=== PATIENT | female | born 1990 | race Caucasian/White ===

== ENCOUNTER 2017-06-26 23:08 | Observation (INO) | payer OTHER ==
[~2017-06-26] VITALS: Ht 162.6 cm; Wt 70.9 kg
[~2017-06-26 23:08] MED LIST: IBU800 M1 PO; PERCOCET 325 MG1 TA2 PO; PRENATAL MVI; ZOFRAN 4MG T4 MG/TAB
[2017-06-26 23:29] LABS: COLLECTION METHOD CLEAN CATCH
[2017-06-26 23:35] LABS: MUCOUS Present /lpf; PH 6 (5-8); URINE APPEARANCE Clear; URINE BACTERIA Rare /hpf; URINE BILIRUBIN Negative (NEGATIVE); URINE BLOOD Negative (NEGATIVE); URINE COLOR Yellow; URINE GLUCOSE Negative (NEGATIVE); URINE KETONE Negative (NEGATIVE); URINE LEUKOCYTE ESTERASE Negative (NEGATIVE); URINE NITRATE Negative (NEGATIVE); URINE PROTEIN(semi-quant) Negative (NEGATIVE); URINE RBC 0-2 /hpf; URINE UROBILINOGEN Negative (NEGATIVE)
[2017-06-27 00:11] LABS: BASO % 0.4 % (0.0-2.0); EOS # 0.4 (0.0-0.7); EOS % 3.4 % (0-4.0); GRAN # 7.9 (1.4-6.5); HEMATOCRIT 37.1 % (37.0-47.0); HEMOGLOBIN 12.4 g/dl (12.5-16.0); LYMPH # 2.2 (1.2-3.4); LYMPH % 19.3 % (20.0-51.0); MEAN CELL VOLUME 86 fl (80.0-100.0); MEAN CORPUSCULAR HEMOGLOBIN 29 pg (27.0-31.0); MEAN CORPUSCULAR HGB CONC 33 g/dl (33.0-37.0); MEAN PLATELET VOLUME 11.9 fl (7.4-10.4); MONO # 0.7 (0.1-0.6); MONO % 6.5 % (1.7-9.3); PLATELET COUNT 196 K/mm3 (130-400); RED BLOOD COUNT 4.33 M/mm3 (4.10-5.30); REDCELL DISTRIBUTION WIDTH-CV 12.8 % (11.5-14.5)
[2017-06-27 00:22] LABS: ALBUMIN 3.7 gm/dL (3.5-5.0); BILIRUBIN,TOTAL 0.2 mg/dL (0.0-1.0); C-REACTIVE PROTEIN 1.2 mg/dL (0.0-0.9); CALCIUM 8.8 mg/dL (8.4-10.2); CREATININE, serum 0.6 mg/dL (0.52-1.25); POTASSIUM 3.7 mmol/L (3.4-5.0)
[2017-06-27] MEDS ORDERED: NORCO 325 MG-51 TAB PO (00:37)
[2017-06-27 02:20] VITALS: BP 118/62; PULSE 90; TEMP 98.8
[2017-06-27] MEDS ORDERED: ZOFRAN ODT8 MG PO (06:40)
== END 2017-06-27 08:20 | disposition home or self-care (01) ==
LOC: COL.ER 23:08 → OB 06-27 01:27
PROVIDERS: Family Medicine
DX: O99.89 Other specified diseases and conditions complicating pregnancy, childbirth and the puerperium (principal); R10.11 Right upper quadrant pain; O99.212 Obesity complicating pregnancy, second trimester; Z3A.24 24 weeks gestation of pregnancy; O99.282 Endocrine, nutritional and metabolic diseases complicating pregnancy, second trimester; E78.00 Pure hypercholesterolemia, unspecified; O21.8 Other vomiting complicating pregnancy
CPT/HCPCS: G0378; J2270; J2405; J2550; J7030; J7120

== ENCOUNTER → 2017-06-30 | Outpatient (CLI) | payer OTHER ==
[~2017-06-30] MED LIST changes: +NORCO 325 MG-51 TAB PO; +ZOFRAN ODT8 MG PO
== END ==
LOC: COL.RAD 10:57
DX: O99.612 Diseases of the digestive system complicating pregnancy, second trimester (principal); K80.20 Calculus of gallbladder without cholecystitis without obstruction; O26.612 Liver and biliary tract disorders in pregnancy, second trimester; K76.0 Fatty (change of) liver, not elsewhere classified; Z3A.24 24 weeks gestation of pregnancy

== ENCOUNTER 2017-10-06 05:36 | Inpatient (IN) | payer OTHER ==
[2017-10-06] VITALS (18 sets, daily range): BP systolic 102–144; BP diastolic 63–95; PULSE 74–101; TEMP 97.6–98.6
[~2017-10-06] VITALS: Ht 162.6 cm; Wt 101.4 kg
[2017-10-06] MEDS ORDERED: ZANTAC 7575 MG PO (06:39)
[2017-10-06 07:01] LABS: BASO % 0.4 % (0.0-2.0); EOS # 0.3 (0.0-0.7); EOS % 3.2 % (0-4.0); GRAN # 5.6 (1.4-6.5); GRAN % 65.5 % (42.2-75.2); HEMOGLOBIN 11.1 g/dl (12.5-16.0); LYMPH # 1.9 (1.2-3.4); LYMPH % 22.5 % (20.0-51.0); MEAN CELL VOLUME 80 fl (80.0-100.0); MEAN CORPUSCULAR HEMOGLOBIN 26 pg (27.0-31.0); MEAN CORPUSCULAR HGB CONC 33 g/dl (33.0-37.0); MEAN PLATELET VOLUME 12.2 fl (7.4-10.4); MONO # 0.7 (0.1-0.6); PLATELET COUNT 200 K/mm3 (130-400); RED BLOOD COUNT 4.21 M/mm3 (4.10-5.30); REDCELL DISTRIBUTION WIDTH-CV 13.9 % (11.5-14.5)
[2017-10-06 07:04] LABS: HEMATOCRIT 33.8 % (37.0-47.0)
[2017-10-07 08:10] VITALS: BP 122/70; PULSE 85; TEMP 97.8
[2017-10-07 16:00] VITALS: BP 118/73; PULSE 87; TEMP 97.9
[2017-10-07 20:45] VITALS: BP 134/77; PULSE 91; TEMP 98.2
[2017-10-08 08:50] VITALS: BP 143/89; PULSE 91; TEMP 97.9
[2017-10-08] MEDS ORDERED: PERCOCET 325 MG1 TA2 PO (09:01)
[2017-10-08] MEDS ORDERED: MOTRIN 800800 MG/TAB PO (09:01)
== END 2017-10-08 11:25 | disposition home or self-care (01) | DRG 766 ==
LOC: OB 05:36
PROVIDERS: Obstetrics & Gynecology
PROC: 10D00Z1 Extraction of Products of Conception, Low, Open Approach (ICD-10-PCS; principal; 2017-10-06)
DX: O34.211 Maternal care for low transverse scar from previous cesarean delivery (principal); Z3A.39 39 weeks gestation of pregnancy; Z37.0 Single live birth
CPT/HCPCS: J0171; J0690; J1885; J2175; J2405; J2590; J3010; J7120

== ENCOUNTER 2017-10-29 20:21 | Emergency (ER) | payer OTHER ==
[~2017-10-29] VITALS: Ht 162.6 cm; Wt 90.9 kg
[~2017-10-29 20:21] MED LIST changes: +MOTRIN 800800 MG/TAB PO; +ZANTAC 7575 MG PO
[2017-10-29 20:25] VITALS: BP 135/76; TEMP 97.3
[2017-10-29 20:50] LABS: BASO # 0.1 (0.0-0.2); BASO % 0.4 % (0.0-2.0); EOS # 0.1 (0.0-0.7); EOS % 0.5 % (0-4.0); GRAN # 11.9 (1.4-6.5); GRAN % 86.9 % (42.2-75.2); HEMATOCRIT 38.4 % (37.0-47.0); HEMOGLOBIN 12.3 g/dl (12.5-16.0); LYMPH # 1.1 (1.2-3.4); LYMPH % 8.1 % (20.0-51.0); MEAN CELL VOLUME 81 fl (80.0-100.0); MEAN CORPUSCULAR HEMOGLOBIN 26 pg (27.0-31.0); MEAN CORPUSCULAR HGB CONC 32 g/dl (33.0-37.0); MEAN PLATELET VOLUME 11.5 fl (7.4-10.4); MONO # 0.5 (0.1-0.6); MONO % 3.7 % (1.7-9.3); PLATELET COUNT 338 K/mm3 (130-400); RED BLOOD COUNT 4.76 M/mm3 (4.10-5.30); REDCELL DISTRIBUTION WIDTH-CV 13.9 % (11.5-14.5)
[2017-10-29 21:00] LABS: COLLECTION METHOD CLEAN CATCH
[2017-10-29 21:03] LABS: ALBUMIN 4.5 gm/dL (3.5-5.0); BILIRUBIN,TOTAL 0.7 mg/dL (0.0-1.0); C-REACTIVE PROTEIN 0.9 mg/dL (0.0-0.9); CALCIUM 9.2 mg/dL (8.4-10.2); CREATININE, serum 0.77 mg/dL (0.52-1.25); POTASSIUM 4.1 mmol/L (3.4-5.0); TOTAL PROTEIN 8.4 gm/dL (6.4-8.2)
[2017-10-29 21:15] LABS: MUCOUS Present /lpf; PH 5 (5-8); SQUAMOUS EPITHELIAL 0-2 /hpf; URINE APPEARANCE Hazy; URINE BACTERIA None Seen /hpf; URINE BILIRUBIN Negative (NEGATIVE); URINE BLOOD 2+ (NEGATIVE); URINE COLOR Yellow; URINE GLUCOSE Negative (NEGATIVE); URINE KETONE Negative (NEGATIVE); URINE LEUKOCYTE ESTERASE Trace (NEGATIVE); URINE NITRATE Negative (NEGATIVE); URINE PROTEIN(semi-quant) 1+ (NEGATIVE); URINE UROBILINOGEN Negative (NEGATIVE)
[2017-10-29] MEDS ORDERED: NORCO 325 MG-51 TAB PO (22:12)
[2017-10-29 22:19] VITALS: PULSE 91
== END 2017-10-29 22:22 | disposition home or self-care (01) ==
LOC: COL.ER 20:21
PROVIDERS: Family Medicine
DX: K80.50 Calculus of bile duct without cholangitis or cholecystitis without obstruction (principal)
CPT/HCPCS: J1885; J2405; J7030; Q9967

== ENCOUNTER 2017-11-08 07:04 | Day surgery (SDC) | payer OTHER ==
[~2017-11-08] VITALS: Ht 162.6 cm; Wt 92.7 kg
[2017-11-08 07:46] VITALS: BP 117/69; PULSE 73; TEMP 97.9
[2017-11-08] MEDS ORDERED: COLACE 100100 MG/CAP PO (10:49)
[2017-11-08] MEDS ORDERED: MOTRIN 600600 MG/TAB PO (10:49)
[2017-11-08] MEDS ORDERED: PERCOCET 325 MG1 TA2 PO (10:50)
[2017-11-08 11:25] VITALS: BP 133/73; PULSE 85; TEMP 98.6
[2017-11-08 11:40] VITALS: BP 121/75; PULSE 82
[2017-11-08 11:55] VITALS: BP 116/73; PULSE 79
[2017-11-08 12:10] VITALS: BP 117/67; PULSE 80
[2017-11-08 13:00] VITALS: BP 122/87; PULSE 85
== END 2017-11-08 14:32 | disposition home or self-care (01) ==
LOC: SDCO 07:04
DX: O99.63 Diseases of the digestive system complicating the puerperium (principal); K80.10 Calculus of gallbladder with chronic cholecystitis without obstruction; Z98.890 Other specified postprocedural states
CPT/HCPCS: J0690; J1100; J1885; J2405; J2550; J2704; J7120; Q9967

== ENCOUNTER 2018-10-25 07:06 | Inpatient (IN) | payer BC ==
[~2018-10-25] VITALS: Ht 162.6 cm; Wt 106.4 kg
[2018-10-25] VITALS (20 sets, daily range): BP systolic 109–134; BP diastolic 60–85; PULSE 64–100; TEMP 97.6–99.9
[~2018-10-25 07:06] MED LIST changes: +COLACE 100100 MG/CAP PO; +MOTRIN 600600 MG/TAB PO
[2018-10-25 07:49] LABS: BASO % 0.4 % (0.0-2.0); EOS # 0.2 (0.0-0.7); EOS % 2.6 % (0-4.0); GRAN # 5.2 (1.4-6.5); GRAN % 68.2 % (42.2-75.2); LYMPH # 1.6 (1.2-3.4); MEAN CELL VOLUME 81 fl (80.0-100.0); MEAN CORPUSCULAR HEMOGLOBIN 24 pg (27.0-31.0); MEAN CORPUSCULAR HGB CONC 30 g/dl (33.0-37.0); MEAN PLATELET VOLUME 12.6 fl (7.4-10.4); MONO # 0.6 (0.1-0.6); MONO % 7.4 % (1.7-9.3); PLATELET COUNT 190 K/mm3 (130-400); REDCELL DISTRIBUTION WIDTH-CV 14.5 % (11.5-14.5)
[2018-10-25 08:05] LABS: HEMATOCRIT 36.6 % (37.0-47.0)
--- NOTE | 2018-10-25 09:10 | NUR ---
0700 PATIENT HERE FOR SCHEDULED C SECTION. ASSESSMENT COMPLETED AND IV STARTED IN LEFT HAND. LR BOLUS GIVEN. EFM ON FHT 120 BABY VERY ACTIVE. CONSENTS SIGNED. PATIENT READY FOR C SECTION.
--- NOTE | 2018-10-25 10:34 | NUR ---
Initial visit; Patient awaiting her baby. Drilling Superintendent introduced herself and offered God's blessings to patient and her .
--- NOTE | 2018-10-25 11:31 | NUR ---
report given d kodak rn to assume care at this time
[2018-10-26] MEDS ORDERED: MOTRIN 800800 MG/TAB PO (07:54)
[2018-10-26] MEDS ORDERED: PERCOCET 325 MG1 TA2 PO (07:54)
[2018-10-26 08:10] VITALS: BP 123/75; PULSE 101; TEMP 98
--- NOTE | 2018-10-26 10:25 | NUR ---
Initial visit; Patient thanked Clinical Sciences Professor for offering congratulations and God's blessings for the of her son. Clinical Sciences Professor thanked Mom for choosing [facility].
[2018-10-26 16:30] VITALS: BP 123/76; PULSE 97; TEMP 98.4
[2018-10-26 19:25] VITALS: BP 140/82; PULSE 103; TEMP 98.6
[2018-10-27 08:15] VITALS: BP 117/71; PULSE 101; TEMP 98.6
--- NOTE | 2018-10-27 08:30 | NUR ---
Rests in bed, alert. Family at bedside. Percocet 5/325 mg one given per request and as ordered.
--- NOTE | 2018-10-27 12:30 | NUR ---
Discharge instructions given, verbalizes understanding.
== END 2018-10-27 13:10 | disposition home or self-care (01) | DRG 788 ==
LOC: OB 07:06
PROVIDERS: ADMIT Obstetrics & Gynecology
PROC: 10D00Z1 Extraction of Products of Conception, Low, Open Approach (ICD-10-PCS; principal; 2018-10-25)
DX: O34.211 Maternal care for low transverse scar from previous cesarean delivery (principal); O99.62 Diseases of the digestive system complicating childbirth; K21.9 Gastro-esophageal reflux disease without esophagitis; O99.214 Obesity complicating childbirth; Z90.49 Acquired absence of other specified parts of digestive tract; Z3A.39 39 weeks gestation of pregnancy; Z37.0 Single live birth; Z28.82 Immunization not carried out because of caregiver refusal
CPT/HCPCS: J0690; J1885; J2270; J2405; J2590; J7120